=== PATIENT | male | born 1985 | race Caucasian/White ===

== ENCOUNTER 2019-11-15 21:36 | Emergency (ER) | payer MEDICAID, SELFPAY ==
[2019-11-15] VITALS (9 sets, daily range): BP systolic 117–167; BP diastolic 83–114; PULSE 84–92; RESP 16–18; TEMP 36.7; O2SAT 94–98; BMI 23.0
--- NOTE | 2019-11-15 21:40 | PC.NURSE ---
at the bedside
--- NOTE | 2019-11-15 21:47 | XR_ITS ---
PROCEDURE: XR HAND LT MIN 3V CLINICAL INDICATION: twisted hand grabbing for a tree The posttraumatic pain COMPARISON: No exams were available for comparison FINDINGS: There is lateral dislocation of the proximal phalanx at the 1st metacarpophalangeal joint. No obvious fracture. The joint spaces are well-preserved. No significant degenerative/arthritic changes. No erosive changes evident. Other findings:None. IMPRESSION: Dislocation of the 1st metacarpophalangeal joint Dictated by: Sammy Neville MD 11/16/2019 05:23 Electronically signed by Sammy Neville MD in [place] 11/16/2019 05:23
--- NOTE | 2019-11-15 21:57 | HMH.EDUPEXT ---
ED Disposition Clinical Impression: Thumb dislocation Qualifiers: Encounter type: initial encounter Laterality: left Qualified Code(s): S63.105A - Unspecified dislocation of left thumb, initial encounter Disposition: Home, Self-Care Condition on Discharge: Good Instructions: Finger Dislocation Additional Instructions: ice and wear splint and call ortho in am Prescriptions: Ketorolac Tromethamine [Toradol 10mg tablet] 10 mg PO Q6H 3 Days #12 tab Transmission Status: [id number] Referrals: Ady Borjas MD [Emergency Provider] - Praveen Ram MD [Staff Physician] - - Critical Care Critical Care Time: No Attestation: On , the high probability of a clinically significant, sudden or life threatening deterioration of the following system(s) required my full and direct attention, intervention and personal management. The time I documented below is in addition to time spent performing reported procedures but includes the following listed in this critical care notation. Medical Decision Making - Medical Records Medical records reviewed: Yes: I reviewed the patient's medical records. - [place] Inquiry Pt receiving controlled substance: No Vital Signs: 11/15/19 21:43 11/15/19 22:05 11/15/19 22:07 Temperature 98.1 F Temperature Source Oral Pulse Rate [Right Brachial] 85 92 H 89 Respiratory Rate 18 18 Blood Pressure [Right Arm] 140/114 H 143/90 H 143/90 H Blood Pressure Mean [Right Arm] 122 107 107 Blood Pressure Source [Right Arm] Automatic Cuff Automatic Cuff Blood Pressure Position [Right Arm] Sitting Sitting 02 Sat by Pulse Oximetry 96 95 98 Oxygen Delivery Method Room Air Room Air Room Air 11/15/19 22:10 11/15/19 22:15 11/15/19 22:20 Temperature Temperature Source Pulse Rate [Right Brachial] 89 88 90 Respiratory Rate 17 16 16 Blood Pressure [Right Arm] 167/110 H 149/107 H 157/96 H Blood Pressure Mean [Right Arm] 129 121 116 Blood Pressure Source [Right Arm] Automatic Cuff Automatic Cuff Automatic Cuff Blood Pressure Position [Right Arm] Sitting Sitting Sitting 02 Sat by Pulse Oximetry 95 94 L 94 L Oxygen Delivery Method Room Air Room Air Room Air 11/15/19 22:25 Temperature Temperature Source Pulse Rate [Right Brachial] 92 H Respiratory Rate 16 Blood Pressure [Right Arm] 117/97 H Blood Pressure Mean [Right Arm] 103 Blood Pressure Source [Right Arm] Automatic Cuff Blood Pressure Position [Right Arm] Sitting 02 Sat by Pulse Oximetry 95 Oxygen Delivery Method Room Air - Lab Data Lab results reviewed: Yes: I reviewed the patient's lab results. Orders (Tests/Meds): ED MEDICATIONS Generic Name Dose Route Start Last Admin Trade Name Freq PRN Reason Stop Dose Admin Sodium Chloride 1,000 mls @ 999 mls/hr 11/15/19 22:15 11/15/19 22:04 Sod Chlor 0.9% 1000ml Bag IV 11/15/19 23:15 999 mls/hr .Q1H1M JARRED Administration Discontinued Medications Generic Name Dose Route Start Last Admin Trade Name Freq PRN Reason Stop Dose Admin Fentanyl Citrate 100 mcg 11/15/19 22:02 Fentanyl 100mcg/2ml Vial IV 11/15/19 22:03 ONCE ONE Fentanyl Citrate 250 mcg 11/15/19 22:02 Fentanyl 250mcg/5ml Vial IV 11/15/19 22:03 ONCE ONE Ketorolac Tromethamine 30 mg 11/15/19 23:00 11/15/19 23:12 Toradol 30mg/Ml Vial IV 11/15/19 23:01 30 mg ONCE ONE Administration Midazolam HCl 2 mg 11/15/19 22:02 11/15/19 22:43 Midazolam 2mg/2ml Vial IV 11/15/19 22:03 2 mg ONCE ONE Administration Midazolam HCl 2 mg 11/15/19 22:02 11/15/19 22:14 Midazolam 2mg/2ml Vial IV 11/15/19 22:03 2 mg ONCE ONE Administration ORDERS Category Date Time Status Hand XR left 2 views [XR hand LT 2V] Stat Exams 11/15/19 22:19 Taken Hand XR left minimum 3 views [XR hand LT min 3V] Stat Exams 11/15/19 21:47 Taken - Radiology Data #1 Image(s): Hand Image Reviewed: Yes I reviewed the patient's radiology image Prelimina
--- NOTE | 2019-11-15 22:10 | PC.NURSE ---
MD and RN at the bedside to initiate conscious sedation. Pt signed permit for reduction of the left thumb.
--- NOTE | 2019-11-15 22:19 | XR_ITS ---
PROCEDURE: XR HAND LT 2V CLINICAL INDICATION: injury Postreduction COMPARISON: XR HAND LT MIN 3V from 11/15/2019 FINDINGS: There has been interval reduction of the dislocation at the 1st metacarpophalangeal joint without obvious fracture. The joint spaces are well-preserved. No significant degenerative/arthritic changes. No erosive changes evident. Other findings:None. IMPRESSION: Reduced dislocation of the 1st metacarpal phalangeal joint Dictated by: Sammy Neville MD 11/16/2019 05:21 Electronically signed by Sammy Neville MD in [place] 11/16/2019 05:21
--- NOTE | 2019-11-15 22:43 | PC.NURSE ---
Rad at the bedside for post-reduction images
--- NOTE | 2019-11-15 22:43 | PC.NURSE ---
Conscious sedation protocol in place at this time.
== END 2019-11-15 23:31 | disposition home or self-care (01) ==
PROVIDERS: Emergency Provider Emergency Medicine
DX: S63.105A Unspecified dislocation of left thumb, initial encounter (principal); X50.1XXA Overexertion from prolonged static or awkward postures, initial encounter; Y92.89 Other specified places as the place of occurrence of the external cause; Z88.0 Allergy status to penicillin
CPT/HCPCS: 29125; 26700; 73120; 73130; 96365; 96375; 99285

== ENCOUNTER 2022-02-08 00:57 | Emergency (ER) | payer MEDICAID, SELFPAY ==
[2022-02-08 01:07] VITALS: BP 128/73; PULSE 96; RESP 16; TEMP 36.6; O2SAT 98; BMI 27.6
--- NOTE | 2022-02-08 01:35 | HMH.EDEXTP ---
Discharge Plan Disposition Patient Disposition: Home, Self-Care Condition: Good Chief Complaint: Extremity Injury, Upper Prescriptions Prescriptions: No Action ibuprofen 800 mg Tablet 800 mg PO Q8H lamotrigine 25 mg Tablet 75 mg PO DAILY Activity Restrictions/Add. Instructions Additional Instructions/Restrictions: Continue taking ibuprofen and Tylenol for your symptoms. If your condition worsens or other concerns arise, please return to the emergency department. Instructions Patient Instructions: DI for Musculoskeletal Pain Discharge ED Provider: Shara Shane Extremity Problem HPI General Chief complaint: Extremity Injury, Upper Stated complaint: Right arm pain Time Seen by Provider: 02/08/22 01:36 Mode of Arrival: Ambulatory Source of Information: Patient Limitations: No Limitations Description of Symptoms (Recalled from ER Triage Doc. by RN): Pt c/o right arm pain since yesterday. Denies injury. States he woke up with the pain. Says the pain is worse in his palm with tingling in his fingers and the pain radiates up to his elbow. History of Present Illness HPI Narrative: Patient is a 36-year-old male presenting with a chief complaint of severe right hand pain and swelling. Patient states he woke up Wednesday morning like this. Pain is worst in the palm and radiates up towards the elbow. Denies trauma or injury. No fever, shortness of breath, chest pain, abdominal pain but patient does state that he has vomited. Admits to IV drug use in the past. Complaint: extremity pain Onset (ago): day(s) Consistency: constant Location: right and upper extremity Quality: burning Radiation: distal Relieving factors: nothing Exacerbating factors: nothing Related Data Home Medications Medication Instructions Recorded Confirmed ibuprofen 800 mg tablet 800 mg PO Q8H back pain 02/08/22 02/08/22 lamotrigine 25 mg tablet 75 mg PO DAILY back pain 02/08/22 02/08/22 Allergies Allergy/AdvReac Type Severity Reaction Status Date / Time amoxicillin AdvReac Verified 11/15/19 21:48 Penicillins AdvReac Verified 11/15/19 21:48 PFSH PFSH Social History Smoking Status: Current every day smoker alcohol intake: never current occupational status: unemployed Travel in the last 8 weeks: None ROS Obtained: Yes Systems reviewed as appropriate & no additional complaints except as documented Constitutional Constitutional: Denies body ache, Denies chills and Denies fever(s) Eyes Eyes: Denies change in vision and Denies eye pain Cardiovascular Cardiovascular: Denies chest pain at rest, Denies chest pain with activity, Denies dyspnea on exertion and Denies leg edema Respiratory Respiratory: Denies shortness of breath, Denies cough, Denies dyspnea on exertion and Denies hemoptysis Gastrointestinal Gastrointestingal: Reports nausea and vomiting; Denies abdominal pain or diarrhea Musculoskeletal Musculoskeletal: Reports other (Severe right hand pain, swelling of right hand) Integumentary/Breasts Skin/Breast: Denies new lesions and Denies rash Neurologic Neurologic: Denies confusion, Denies focal weakness and Reports paresthesias (Tingling/burning in the right hand) Physical Exam General General appearance: alert and in no apparent distress Head Head exam: atraumatic, normocephalic and normal inspection Eye Eye exam: Present normal appearance; Absent conjunctival redness or conjunctival injection ENT ENT exam: Present normal exam, normal oropharynx, mucous membranes moist and normal external ear exam Neck Neck exam: Present normal inspection, full ROM and trachea midline Chest Chest inspection: Present normal inspection and symmetric chest wall rise Respiratory Respiratory exam: Present normal lung sounds bilaterally; Absent respiratory distress, wheezes or stridor Cardiovascular Cardiovascular exam: Present regular rate, normal rhythm and normal heart s
--- NOTE | 2022-02-08 01:42 | XR_ITS ---
PROCEDURE INFORMATION: Exam: XR Right Hand Exam date and time: 02/08/2022 1:43 AM Age: 36 years old Clinical indication: Pain; Hand; Right; Additional info: Pain, no known injury, TECHNIQUE: Imaging protocol: Radiologic exam of the Right hand. Views: 1 or 2 views. COMPARISON: No relevant prior studies available. FINDINGS: Bones/joints: Normal. Soft tissues: Normal. IMPRESSION: No acute findings.
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
[2022-02-08 02:32] LABS: Basophils # 0.2 K/mm3 (0-0.2); Basophils % 1.6 % (0.1-2.0); Eosinophils # 0.4 K/mm3 (0.0-0.4); Eosinophils % 3.7 % (0.1-12.0); Hematocrit 46.2 % (42.0-52.0); Hemoglobin 15.6 g/dL (14.1-18.0); Lymphocytes # 3.5 K/mm3 (0.7-4.5); Lymphocytes % 32.1 % (10-50); Mean Corpuscular HGB Conc 33.6 g/dL (31.8-35.4); Mean Corpuscular Hemoglobin 28.7 pg (27.0-31.2); Mean Corpuscular Volume 85.2 fl (80-94); Mean Platelet Volume 8.8 fl (7.4-10.4); Monocytes # 0.9 K/mm3 (0.1-1.0); Monocytes % 8.1 % (1.7-9.3); Neutrophils # 5.9 K/mm3 (1.8-7.8); Neutrophils % 54.6 % (37.0-80.0); Platelet Count 250 K/mm3 (142-424); Red Blood Count 5.43 M/mm3 (4.60-6.20); Red Cell Distribution Width 13.1 % (11.5-17.5); White Blood Count 10.8 K/mm3 (4.8-10.8)
[2022-02-08 02:35] LABS: Alanine Aminotransferase 50 U/L (12-78); Albumin Level 3.9 g/dl (3.5-5.0); Albumin/Globulin Ratio 1.3 (1.1-1.8); Alkaline Phosphatase 108 U/L (38-126); Aspartate Amino Transferase 70 U/L (17-59); Bilirubin,Total 0.9 mg/dl (0.2-1.3); Blood Urea Nitrogen 15 mg/dl (9-20); Calcium 8.5 mg/dl (8.4-10.2); Carbon Dioxide 27 mmol/L (22.0-30.0); Creatine Kinase 798 U/L (55-170); Creatinine Clearance Estimated 162 mL/min (50-200); Estimated Glomerular Filt Rate 109 ml/min (>60); GFR (African American) 132 ML/MIN (>60); Globulin 2.9 g/dL (1.3-3.2); Glucose 127 mg/dl (74-100); Potassium 3.8 mmoL/L (3.5-5.1); Sodium 138 mmol/L (136-145); Total Protein,Serum 6.8 g/dl (6.3-8.2)
[2022-02-08 02:37] LABS: Barbiturates Screen,Urine Negative ng/ml (<200); Benzodiazepines Screen,Urine Negative ng/ml (<200)
[2022-02-08 02:38] LABS: Ethyl Alcohol < 10 mg/dl (0-10)
[2022-02-08 02:38] LABS: Cannabinoid Screen,Urine Positive ng/ml (<50)
[2022-02-08 02:38] LABS: Lactic Acid 1.1 mmol/L (0.7-2.1)
[2022-02-08 02:39] LABS: Cocaine Screen,Urine Negative ng/ml (<300); Methadone Screen,Urine Negative ng/ml (<300)
[2022-02-08 02:40] LABS: Anion Gap 12.8 mEq/L (5-15); C-Reactive Protein 20.9 mg/L (0-4); Chloride 102 mmol/L (98-107)
[2022-02-08 02:40] LABS: Phencyclidine Screen,Urine Negative ng/ml (<25)
[2022-02-08 02:41] LABS: Opiate Screen,Urine Negative ng/ml (<300)
[2022-02-08 02:56] LABS: Amphetamine/Metha Screen,Urine Positive ng/ml (<1000)
[2022-02-08 03:03] LABS: Erythrocyte Sedimentation Rate 8 mm/hr (0-15)
--- NOTE | 2022-02-08 03:32 | CT_ITS ---
PROCEDURE INFORMATION: Exam: CTA Right Upper Extremity With Contrast Exam date and time: 02/08/2022 4:40 AM Age: 35 years old Clinical indication: Pain; Lower or forearm and upper arm; Right; Additional info: Severe right hand pain swelling in RT arm. TECHNIQUE: Imaging protocol: Computed tomographic angiography of the Right upper extremity with contrast, including non-contrast images if performed. 3D rendering (Not supervised by radiologist): MIP and/or 3D reconstructed images were created by the technologist. Radiation optimization: All CT scans at this facility use at least one of these dose optimization techniques: automated exposure control; mA and/or kV adjustment per patient size (includes targeted exams where dose is matched to clinical indication); or iterative reconstruction. Contrast material: ISOVUE 370; Contrast volume: 100 ml; Contrast route: INTRAVENOUS (IV); COMPARISON: CR Hand R 02/08/2022 1:43 AM FINDINGS: Right subclavian artery: No acute findings. No occlusion or significant stenosis. Axillary artery: No acute findings. No occlusion or significant stenosis. Brachial artery: No acute findings. No occlusion or significant stenosis. Radial artery: No acute findings. No occlusion or significant stenosis. Ulnar artery: No acute findings. No occlusion or significant stenosis. Soft tissues: Mild subcutaneous edema in the hand. No fluid collections. IMPRESSION: Unremarkable CTA.
[2022-02-08 06:09] VITALS: BP 120/78; PULSE 79; RESP 17; TEMP 36.8; O2SAT 98
== END 2022-02-08 06:16 | disposition home or self-care (01) ==
PROVIDERS: Emergency Provider Emergency Medicine
DX: M79.601 Pain in right arm (principal)
CPT/HCPCS: 73120; 73206; 80053; 80305; 82550; 83605; 85025; 85651; 86140; 96374; 96375; 99284; Q9967

== ENCOUNTER 2022-11-07 20:14 | Emergency (ER) | payer MEDICAID, SELFPAY ==
[2022-11-07 20:16] VITALS: BP 156/94; PULSE 89; RESP 19; TEMP 36.5; O2SAT 98; BMI 27.6
[2022-11-07 20:23] VITALS: BP 156/94; PULSE 82; O2SAT 100
[2022-11-07 20:27] VITALS: BMI 27.6
--- NOTE | 2022-11-07 20:29 | XR_ITS ---
PROCEDURE INFORMATION: Exam: XR Left Foot Exam date and time: 11/07/2022 8:32 PM Age: 36 years old Clinical indication: Injury or trauma; Fall; Additional info: Fall, pain TECHNIQUE: Imaging protocol: Radiologic exam of the left foot. Views: 3 or more views. COMPARISON: CR Ankle L 11/07/2022 8:30 PM FINDINGS: Bones/joints: No acute fracture or malalignment. Soft tissues: Mild lateral ankle soft tissue swelling. IMPRESSION: Mild lateral ankle soft tissue swelling. No acute osseous findings.
--- NOTE | 2022-11-07 20:29 | XR_ITS ---
PROCEDURE INFORMATION: Exam: XR Left Ankle Exam date and time: 11/07/2022 8:30 PM Age: 36 years old Clinical indication: Injury or trauma; Fall; Additional info: Fall, pain TECHNIQUE: Imaging protocol: Radiologic exam of the left ankle. Views: 3 or more views. COMPARISON: No relevant prior studies available. FINDINGS: Bones/joints: No acute fracture or malalignment. Soft tissues: Mild lateral ankle soft tissue swelling. IMPRESSION: Mild lateral ankle soft tissue swelling. No acute osseous findings.
--- NOTE | 2022-11-07 20:29 | XR_ITS ---
PROCEDURE INFORMATION: Exam: XR Right Hand Exam date and time: 11/07/2022 8:39 PM Age: 36 years old Clinical indication: Injury or trauma; Fall; Additional info: Fall, pain TECHNIQUE: Imaging protocol: Radiologic exam of the right hand. Views: 3 or more views. COMPARISON: CR XR HAND RT 2V 02/08/2022 1:43 AM FINDINGS: Bones/joints: No acute fracture or malalignment. Mild ring finger DIP joint osteoarthritis. Soft tissues: Normal. IMPRESSION: No acute osseous findings.
--- NOTE | 2022-11-07 20:29 | XR_ITS ---
PROCEDURE INFORMATION: Exam: XR Right Wrist Exam date and time: 11/07/2022 8:38 PM Age: 36 years old Clinical indication: Injury or trauma; Fall; Additional info: Fall, pain TECHNIQUE: Imaging protocol: Radiologic exam of the right wrist. Views: 3 or more views. COMPARISON: CR XR HAND RT 2V 02/08/2022 1:43 AM FINDINGS: Bones/joints: No acute fracture or malalignment. Soft tissues: Normal. IMPRESSION: No acute osseous findings.
--- NOTE | 2022-11-07 20:29 | XR_ITS ---
PROCEDURE INFORMATION: Exam: XR Left Tibia and Fibula Exam date and time: 11/07/2022 8:33 PM Age: 36 years old Clinical indication: Injury or trauma; Fall; Additional info: Fall, pain TECHNIQUE: Imaging protocol: Radiologic exam of the left tibia and fibula. Views: 2 views. COMPARISON: CR Foot L 11/07/2022 8:32 PM FINDINGS: Bones/joints: No acute fracture or malalignment. Soft tissues: Mild lateral ankle soft tissue swelling. IMPRESSION: Mild lateral ankle soft tissue swelling. No acute osseous findings.
[2022-11-07 20:30] VITALS: BP 145/98; PULSE 89; O2SAT 98
[2022-11-07 21:00] VITALS: BP 143/87; PULSE 86; O2SAT 96
--- NOTE | 2022-11-07 21:13 | HMH.EDLOEX ---
Discharge Plan Disposition Patient Disposition: Home, Self-Care Prescriptions Prescriptions: No Action ibuprofen 800 mg Tablet 800 mg PO Q8H lamotrigine 25 mg Tablet 75 mg PO DAILY Referrals Follow up/Referrals: Provider,Referral, [Primary Care Provider] - See instructions Clinical Impressions Clinical Impression: Ankle sprain, Wrist sprain Instructions Patient Instructions: DI for Wrist Sprain, DI for Ankle Sprain Discharge ED Provider: [place] (ED)Ady Lower Extremity Injury HPI General Chief Complaint: Extremity Injury, Lower Stated Complaint: [id number] right hand left ankle, fall at home Time Seen by Provider: 11/07/22 21:14 Mode of Arrival: Family Vehicle Source of Information: Patient and Medical Record Limitations: No Limitations Description of Symptoms (Recalled from ER Triage Doc. by RN): Pt c/o left foot and ankle pain after getting his foot stuck into a hole and falling down. He also has pain to his right wrist by trying to catch his fall. He denies hitting his head, denies neck pain. He has not taken any medication [employer]. No significant PMH. History of Present Illness HPI Narrative: stepped in hole with lt ankle/lower ext injury/and rt wrist injury - MD complaint: ankle injury and foot injury Onset (ago): hour(s) Injury: Left: ankle and foot Type of Injury: hyperextension Place: home Severity: moderate Exacerbating factors: weight bearing, movement and palpation Context: walking Associated symptoms: snap/pop sensation and able to partially bear weight Other symptoms: none Related Data Home Medications Medication Instructions Recorded Confirmed ibuprofen 800 mg tablet 800 mg PO Q8H back pain 02/08/22 02/08/22 lamotrigine 25 mg tablet 75 mg PO DAILY back pain 02/08/22 02/08/22 Allergies Allergy/AdvReac Type Severity Reaction Status Date / Time amoxicillin AdvReac Verified 11/15/19 21:48 Penicillins AdvReac Verified 11/15/19 21:48 PFSH PFS Disclaimer: The information contained in this section may have been updated after the patient was seen, as this information can be updated by other users. Social History Smoking Status: Current every day smoker alcohol intake: never current occupational status: unemployed Travel in the last 8 weeks: None ROS Obtained: Yes All systems reviewed & no additional complaints except as documented Constitutional Constitutional: Reports system reviewed and no additional complaints, except as documented Physical Exam General General appearance: alert Head Head exam: normocephalic Eye Eye exam: Present PERRL and EOMI ENT ENT exam: Present mucous membranes moist Neck Neck exam: Present trachea midline Respiratory Respiratory exam: Absent respiratory distress Cardiovascular Cardiovascular exam: Present regular rate Expanded Upper Extremity Exam Right: Forearm/Wrist exam: Present tenderness and swelling; Absent full ROM or erythema Neuromotor exam: Normal wrist extension Vascular exam: Normal radial pulse Expanded Lower Extremity Exam Left: Lower leg exam: Present normal inspection and Achilles tendon intact Ankle exam: Present tenderness and swelling; Absent full ROM Foot/toe exam: Present normal inspection Neurovascular/Tendon exam: Absent pulse deficit or motor deficit Neurological Exam Neurological exam: Present alert, oriented X3 and CN II-XII intact; Absent motor sensory deficit Psychiatric Psychiatric exam: Present normal affect Skin Skin exam: Absent rash Medical Decision Making Medical Records Medical records reviewed: Yes I reviewed the patient's medical records. [place] Inquiry Pt receiving controlled substance: No Vital Signs: 11/07/22 20:23 11/07/22 20:16 11/07/22 20:30 Temperature 97.7 F Temperature Source Oral Pulse Rate 82 89 Pulse Rate [Right] 89 Respiratory Rate 19 Blood
[2022-11-07 21:44] VITALS: BP 144/87; PULSE 80; RESP 16; TEMP 36.7; O2SAT 99
== END 2022-11-07 21:45 | disposition home or self-care (01) ==
PROVIDERS: Emergency Provider Emergency Medicine
DX: S93.402A Sprain of unspecified ligament of left ankle, initial encounter (principal); S63.501A Unspecified sprain of right wrist, initial encounter; W18.30XA Fall on same level, unspecified, initial encounter; F17.200 Nicotine dependence, unspecified, uncomplicated
CPT/HCPCS: 73110; 73130; 73590; 73610; 73630; 99283; 99284

== ENCOUNTER 2023-10-30 18:10 | Emergency (ER) | payer OTHER, SELFPAY ==
[2023-10-30 18:11] VITALS: BP 131/94; PULSE 82; RESP 20; TEMP 36.5; O2SAT 97; BMI 29.2
[2023-10-30 18:19] VITALS: BMI 29.2
[2023-10-30] MEDS: CLINDAMYCIN 150MG CAPSULE 450 MG PO (18:34)
[2023-10-30] MEDS: LIDOCAINE 2% VISCOUS SOL 15ML UDC 15 ML PO (18:34)
[2023-10-30] MEDS: LIDOCAINE 1% 10ML MDV 10 ML SQ (18:35)
--- NOTE | 2023-10-30 18:41 | HMH.EDGENADL ---
Discharge Plan Disposition Patient Disposition: Home, Self-Care Prescriptions Prescriptions: New clindamycin HCl 150 mg capsule 450 mg PO Q8H 7 Days Qty: 63 0RF No Action ibuprofen 800 mg Tablet 800 mg PO Q8H lamotrigine 25 mg Tablet 75 mg PO DAILY Referrals Follow up/Referrals: Provider,Referral, MD [Primary Care Provider] - See instructions Activity Restrictions/Add. Instructions Additional Instructions/Restrictions: Call your family doctor to establish care for this visit to the emergency department and schedule follow-up within 48 hours to ensure improvement. If you have any worsening of your condition or any other concerning signs or symptoms, return to the emergency department or your primary care doctor for further evaluation. Clindamycin 450 mg 3 times daily for 7 days Clinical Impressions Clinical Impression: Dental caries Discharge ED Provider: Umer Childers General Adult HPI General Chief complaint: Dental/Oral Stated complaint: tooth ache Time Seen by Provider: 10/30/23 18:21 Mode of Arrival: Family Vehicle Source of Information: Patient Limitations: No Limitations Description of Symptoms (Recalled from ER Triage Doc. by RN): Pt c/o severe toothache to R side. He does have a Denisit in [place] but was not able to see them recently. History of Present Illness HPI narrative: Please note that above description of symptoms, in this electronic medical record under categorization of recalled from ER triage doctor by RN are reflective of an initial nursing assessment, however, is not reflective of my full history and physical exam that was personally taken and clarified. Consequentially, this preceding description of symptoms, which may include the patient's categorized chief complaint in the EMR, do not reflect my personal clinical impression, and the ultimate description of history of present illness and patient stated complaints should be deferred to this section of the note. Unless stated otherwise or congruent with this section of the note, additional signs, symptoms, or incongruence should be interpreted as inaccurate with my clinical impression. Related Data Home Medications Medication Instructions Recorded Confirmed ibuprofen 800 mg tablet 800 mg PO Q8H back pain 02/08/22 02/08/22 lamotrigine 25 mg tablet 75 mg PO DAILY back pain 02/08/22 02/08/22 Previous Rx's Medication Instructions Recorded clindamycin HCl 150 mg capsule 450 mg (3 x 150 mg) PO Q8H 7 days 10/30/23 #63 caps Allergies Allergy/AdvReac Type Severity Reaction Status Date / Time amoxicillin AdvReac Verified 11/15/19 21:48 Penicillins AdvReac Verified 11/15/19 21:48 [facility] Disclaimer: The information contained in this section may have been updated after the patient was seen, as this information can be updated by other users. Social History Smoking Status: Current every day smoker alcohol intake: never current occupational status: unemployed Travel in the last 8 weeks: None ROS Obtained: Yes All systems reviewed & no additional complaints except as documented Physical Exam General General appearance: alert and in no apparent distress Head Head exam: atraumatic and normocephalic Eye Eye exam: Present normal appearance, PERRL and EOMI ENT ENT exam: Present mucous membranes moist Neck Neck exam: Present normal inspection, full ROM and trachea midline Respiratory Respiratory exam: Absent respiratory distress, wheezes, stridor, accessory muscle use or prolonged expiratory phase Cardiovascular Cardiovascular exam: Present normal rhythm Abdominal Exam Abdominal exam: Present soft; Absent distention, tenderness, guarding, rebound or rigidity Extremities Exam Extremities exam: Absent edema Neurological Exam Neurological exam: Present alert, oriented X3, CN II-XII intact and normal gait; Absent motor sensory deficit Skin Skin exam: Present warm and dry; Absent diaphoresis or erythema Medical Decision Making Medical Records Medical records reviewed: Yes I reviewed the patient's medical records. Duane Inquiry Pt receiving controlled substance: No Duane was queried for this patient: No Vital Signs: 10/30/23 18:11 10/30/23 19:00 Temperature 97.7 F Temperature Source Oral Pulse Rate 64 Pulse Rate [Right] 82 Respiratory Rate 20 Blood Pressure 125/89 Blood Pressure [Right Arm] 131/94 H Blood Pressure Mean 97 Blood Pressure Mean [Right Arm] 106 Blood Pressure Source [Right Arm] Automatic Cuff 02 Sat by Pulse Oximetry 97 94 L Oxygen Delivery Method Room Air Orders (Tests/Meds): ED MEDICATIONS Discontinued Medications Generic Name Dose Route Start Last Admin Trade Name Freq PRN Reason Stop Dose Admin Clindamycin HCl 450 mg 10/30/23 18:30 10/30/23 18:34 Clindamycin 150mg Capsule PO 10/30/23 18:31 450 mg ONCE ONE Administration Dexamethasone 10 mg 10/30/23 19:16 10/30/23 19:26 Dexamethasone 4mg Tablet PO 10/30/23 19:17 10 mg ONCE ONE Administration Lidocaine HCl 15 ml 10/30/23 18:30 10/30/23 18:34 Lidocaine 2% Viscous Keyla 15ml Udc PO 10/30/23 18:31 15 ml ONCE ONE Administration Lidocaine HCl 10 ml 10/30/23 18:30 10/30/23 18:35 Lidocaine 1% 10ml Mdv SQ 10/30/23 18:31 10 ml ONCE ONE Administration Medical Decision Narrative: 37-year-old male history of poor dentition necessitating numerous dental extractions presenting with right-sided dental pain. Patient states that this started about 3 hours prior while he was mowing the grass. He had mild no work. Right-sided maxillary pain. Throbbing, stabbing, radiating into his tooth. Associated with a broken tooth that he has dentistry follow-up with. No fevers or chills, facial swelling, or any other concerns. History obtained with patient. On arrival, patient appears to be in mild-moderate distress secondary to pain, holding his face. Broken tooth, no evidence of periapical abscess or drainable fluid collection. No evidence of tonsillitis, exudate, pharyngeal erythema, uvular deviation, palatal swelling, trismus, dental abscess, angioedema, or other abnormal damon pharyngeal findings. Patient given dental balls, alveolar nerve block was performed with 1% lidocaine. Infraorbital nerve block also performed. Patient given clindamycin. Patient also given Decadron for inflammatory pain. On reevaluation, patient states that pain is significantly better, but still present. Given patient presentation, workup, history, this most likely represents dental caries and periapical infection. Because patient at baseline without signs or symptoms of clinical decompensation, deemed appropriate for discharge. Results were relayed to patient who voiced understanding and were agreeable to outpatient management and follow up. I discussed my clinical impression with patient and answered all questions. At this time, the evidence for any other entities in the differential is insufficient to warrant any further testing or ED observation. This was explained as well. Advisory was given that persistent or worsening symptoms require further evaluation. I confirmed the understanding of this discussion. Cash Teller disclaimer Much of this encounter note is an electronic establishment guide spoken language to printed text. Electronic establishment guide of the spoken language may permit errors. Although I have reviewed the note, some errors may still exist. Critical Care Critical Care Time Critical Care Time: No
[2023-10-30 19:00] VITALS: BP 125/89; PULSE 64; O2SAT 94
--- NOTE | 2023-10-30 19:23 | PC.NURSE ---
rounded on patient no pertinent needs at this time, patient stated that he was still in severe pain at this time. I informed him I would notify the doctor
[2023-10-30] MEDS: DEXAMETHASONE 4MG TABLET 10 MG PO (19:26)
[2023-10-30 19:38] VITALS: BP 128/90; PULSE 64; RESP 17; TEMP 36.8; O2SAT 95
== END 2023-10-30 19:43 | disposition home or self-care (01) ==
PROVIDERS: Emergency Provider Emergency Medicine
DX: K02.9 Dental caries, unspecified (principal); F17.210 Nicotine dependence, cigarettes, uncomplicated
CPT/HCPCS: 99283

== ENCOUNTER 2024-11-19 19:47 | Emergency (ER) | payer OTHER, SELFPAY ==
[2024-11-19 19:59] VITALS: BP 133/82; PULSE 92; RESP 18; TEMP 36.8; O2SAT 100; BMI 29.2
--- OUTSIDE RECORDS SUMMARY | 2024-11-19 20:01 | XMS_ITS | Clinical Summary ---
Author Organization [facility] Address [facility] [facility] [address] [place] [address] Phone Care Team Providers Care Asset Protection Detective Name Role Phone Alicja PALACIO, Samuel Unavailable [phone] Conditions or Problems No information available. Medications No information available. Medications Administered No information available. Allergies, Adverse Reactions, Alerts No information available. Results No information available. Plan of Care No information available. Procedures No information available. Vital Signs No information available. Immunizations No information available. Advance Directives No information available.
--- OUTSIDE RECORDS SUMMARY | 2024-11-19 20:01 | XMS_ITS | Clinical Summary ---
Author Organization Healthcare Address [address] [place] [address] Care Team Providers Care Animal Shelter Worker Name Role Phone Pcp, No Primary Care Provider Unavailabl e Allergies Active Allergy Reactions Criticality Noted Date Comments Penicillins Hives Medium 05/02/2024 Medications acetaminophen (Tylenol Extra Strength) 500 MG tablet Take 2 tablets (1,000 mg) by mouth every 8 (eight) hours. 100 tablet 05/03/2024 Active methocarbamol (Robaxin) 750 MG tabletIndicatio ns:Cervical strain, acute, initial encounter Take 1 tablet (750 mg) by mouth 3 (three) times a day if needed for muscle spasms. 90 tablet 05/25/2024 Active Encounters Date Type Department Care Team Description 08/28/2024 Telephone [facility] access hospital [address], [address] [place] [address] Deepa Noyola 08/23/2024 Telephone Critical access hospital [address], [address] [place] [address] Irish Galvan APRN 08/22/2024 Telephone Critical access hospital [address] [place] [address] Irish Galvan, AMY from Last 3 Months Social History Tobacco Use Types Packs/Day Years Used Date Smoking Tobacco: Every Day Cigarettes Smokeless Tobacco: Never Tobacco Cessation:Ready to Q uit: Not Asked; Counseling Given: Not Answered Alcohol Use Standard Drinks/Week Comments Never 0 (1 standard drink = 0.6 oz pur e alcohol) PHQ-2 Answer Date Recorded Patient Health Questionnaire-2 Score 2 05/25/2024 PHQ-9 Answer Date Recorded Patient Health Questionnaire-9 Score 15 05/25/2024 Sex and Gender Information Value Date Recorded Sex Assigned at Not on file Legal Sex Male 8:11 PM EDT Gender Identity Not on file Sexual Orientation Not on file Last Filed Vital Signs Vital Sign Reading Time Taken Comments Blood Pressure 106/80 05/25/2024 11:37 AM EST Pulse 59 05/03/2024 3:53 AM EST Temperature 36.5 C (97.7 F) 05/03/2024 3:53 AM EST Respiratory Rate 15 05/03/2024 3:53 AM EST Oxygen Saturation 97% 05/03/2024 3:53 AM EST Inhaled Oxygen Concentration - - Weight 94 kg (207 lb 3.7 oz) 05/25/2024 11:37 AM EST Height 180.3 cm (5' 11 ) 05/25/2024 11:37 AM EST Body Mass Index 28.9 05/25/2024 11:37 AM EST Plan of Treatment Health Maintenance Due Date Last Done Comments [facility]-Infant/Child/Adol SDOH Screenings 04/26/1985 [facility]-Varicella Vaccines (1 of 2 - 13+ 2-dose series) 04/25/1998 HPV Vaccines (1 - Male 3-dos e series) 04/25/2000 [facility]- SDOH Screenings 04/25/2003 [facility]-Adult SDOH Screenings 04/25/2003 [facility]-Pneumococcal Vaccine: Pediatrics (0 to 5 Years) and At-Risk Patients (6 to 49 Years) (1 of 2 - PCV) 04/25/2004 [facility]-DTaP,Tdap,and Td Vaccine s (2 - Tdap) 08/13/2006 08/12/2006, 02/20/1998 [id number] Vaccine (2 - season) 2024 09/17/2020 [facility]-Influenza Vaccine (#1) 2025 [facility]-Depression Screening 05/25/2025 025, 05/25/2024 [facility]-Zoster Vaccines (1 of 2) 04/25/2035 [facility]-Hepatitis B Vaccines Completed 000, 12/24/1998, 11/22/1998 [facility]-Hepatitis A Vaccines Aged Out 01/06/2018 No longer eligible based on patient's age to complete this topic [facility]-Hepatitis C Screening Completed 01/24/2019 [facility]-HIV Screening Completed 05/02/2024 [facility]-Obesity Intervention Completed 05/25/2024 [facility]-HIB Vaccines Aged Out No longer e ligible based on patient's age to complete this topic [facility]-IPV Vaccines Aged Out No longer e ligible based on patient's age to complete this topic [facility]-Rotavirus Vaccines Aged Out No lo nger eligible based on patient's age to complete this topic Procedures Procedure Name Priority Date/Time Associated Diagnosis Comments ED HIV 1/2 ANTIBODY/ANTIGEN SCREEN WITH REFLEX TO HIV I/II DIFFERENTIATION STAT 05/02/2024 11:06 PM EST HEPATITIS C ANTIBODY - ED W/REFLEX TO HCV QUANT PCR Routine 01/24/2019 10:25 AM EDT from Last 3 Months or Most Recently Relevant to Health Maintenance Results * ED HIV 1/2 Antibody/Antigen Screen w/Reflex to HIV 1/2 Differentiation (05/02/2024 11:06 PM EST) HIV 1 & 2 Antibody/Antigen Screen Non Reactive Non Reactive 05/02/2024 11:58 PM EST [facility] Comment:Screening for HIV 1 & 2 antibodies, and P24 antigen is NONREACTIVE. No confirmatory testing is required. Blood Venous blood specimen / Unknown Venipuncture / Unknown 05/02/2024 11:06 PM EST 05/02/2024 11:17 PM EST us Fidel Song MD LAB BLOOD ORDERABLES Final Res ult [facility] [address] [place] [address] * [place] Hepatitis C Antibody (01/24/2019 10:25 AM EDT) Eb Hepatitis C Ab POSITIVE This specimen is being sent for confirmation by PCR. Reference Range: Negative [facility] 01/24/2019 10:2 5 AM EDT 01/24/2019 10:45 AM EDT us Historical Provider LAB BLOOD ORDERABLES Genesis [email or web address] Result [facility] from Last 3 Months or Most Recently Relevant to Health Maintenance Insurance [employer]ICAID [employer] [facility] Care Teams Animal Shelter Worker Relationship Specialty Start Date End Date Pcp, No [address] [place] [address] PCP - General Family Medicine 05/25/24
--- OUTSIDE RECORDS SUMMARY | 2024-11-19 20:01 | XMS_ITS ---
Author Organization Healthcare Address [address] [place] [address] Care Team Providers Care Buckle Stapler Name Role Phone Pcp, No Primary Care Provider Unavailabl e Hepatitis C Program Status:Paused (Paused) Start date:01/24/2019 Enrollment date:01/24/2019 Enrollment reason:HCV Continued Care and Services Coordination
--- NOTE | 2024-11-19 20:03 | ED_ITS ---
<Statement entered by Jhonatan Salomon MD - 11/19/24 23:31> I was consulted by the KATARZYNA, and we discussed the complexity of the problems being addressed. I approved the treatment and management plan for this patient's care in the emergency department, thus performing a substantive portion of the medical decision making. The dog that the patient bit is going to an animal fci and will likely be put down and therefore cannot be observed for rabies. Given this rabies postexposure prophylaxis although exceedingly low given the circumstances is still technically warranted. Patient signed out AGAINST MEDICAL ADVICE prior to receiving his rabies vaccines. Jhonatan Salomon MD Discharge Plan Disposition Patient Disposition: Left Against Medical Advice Prescriptions Prescriptions: New lidocaine [Lidoderm] 5 % adhesive patch,medicated 1 patch topical DAILY Qty: 15 0RF Rx Instructions: leave on most painful area for up to 12 hrs methocarbamol 500 mg tablet 500 mg PO TID Qty: 90 0RF No Action clindamycin HCl 150 mg capsule 450 mg PO Q8H 7 Days Qty: 63 0RF ibuprofen 800 mg Tablet 800 mg PO Q8H lamotrigine 25 mg Tablet 75 mg PO DAILY Referrals Follow up/Referrals: Provider,Referral, [Primary Care Provider, Medical] - See instructions Activity Restrictions/Add. Instructions Additional Instructions/Restrictions: Today you were evaluated in the emergency department. You signed out AGAINST MEDICAL ADVICE Clinical Impressions Clinical Impression: Right rib fracture, Fracture of lumbar spine, Left against medical advice Instructions Patient Instructions: DI for Low Back Pain Print Language Print Language: Vietnamese Discharge ED Provider: Jhonatan Salomon General Adult HPI General Chief complaint: Back Pain/Injury Stated complaint: AO 11/19/24 1800 dog fight injury back,L arm Time Seen by Provider: 11/19/24 19:57 History of Present Illness HPI narrative: Patient is a 38-year-old male no significant PMHx who presents to the ED for lower back pain that occurred after he broke up a dog fight. Patient states he did not get bit by any dog however rest of the dogs on the ground and the blood and then after he realized that his lower back was hurting. Related Data Home Medications ?Medication ?Instructions ?Recorded ?Confirmed ibuprofen 800 mg tablet 800 mg PO Q8H back pain 01/2202/08/22 lamotrigine 25 mg tablet 75 mg PO DAILY back pain 01/2202/08/22 Previous Rx's ?Medication ?Instructions ?Recorded clindamycin HCl 150 mg capsule 450 mg (3 x 150 mg) PO Q8H 7 days 10/30/23 #63 caps lidocaine 5 % topical patch 1 patch topical DAILY #15 ea 11/19/24 (Lidoderm) methocarbamol 500 mg tablet 500 mg PO TID #90 tabs Allergies Allergy/AdvReac Type Severity Reaction Status Date / Time amoxicillin AdvReac Verified 11/15/19 21:48 Penicillins AdvReac Verified 11/15/19 21:48 PFSH [facility] Disclaimer: The information contained in this section may have been updated after the patient was seen, as this information can be updated by other users. Social History Smoking Status: Never smoker alcohol intake: never current occupational status: unemployed Travel in the last 8 weeks?: None Have you lived/traveled outside US in past 30 days?: No Contact w/someone who lives/traveled outside US past 30 days?: No Exposure to someone with infectious disease in past 14 days?: No Do you have a fever (greater than 100.4 F or 38 C)?: No Have you tested positive for COVID-19?: No Exposed to someone with COVID-19 in past 14 days?: No Do you have a sore throat?: No Do you have a cough?: No Do you have any weakness?: No Do you have any diarrhea?: No Are you experiencing any unusual bleeding?: No Do you have any muscle aches/pain?: No Do you have any abdominal pain?: No Are you experiencing loss of taste or smell?: No Other Medical History Have you received the Flu Vaccine for this season: No Have you received the Pneumonia Vaccine: No ROS Obtained: Yes Systems reviewed as appropriate & no additional complaints except as documented Physical Exam General General appearance: alert and in no apparent distress Head Head exam: atraumatic and normocephalic Eye Eye exam: Present normal appearance and PERRL ENT ENT exam: Present normal exam Neck Neck exam: Present normal inspection Chest Chest inspection: Present normal inspection and symmetric chest wall rise; Absent tenderness Respiratory Respiratory exam: Present normal lung sounds bilaterally Cardiovascular Cardiovascular exam: Present regular rate Abdominal Exam Abdominal exam: Present soft and normal bowel sounds; Absent tenderness Extremities Exam Extremities exam: Present normal inspection and full ROM Back Exam Back exam: Present full ROM and tenderness (Bilateral lower back musculature tenderness, no spinal tenderness, no step-offs, no deformities) Neurological Exam Neurological exam: Present alert and oriented X3 Psychiatric Psychiatric exam: Present normal affect and normal mood Skin Skin exam: Present warm and dry Medical Decision Making Medical Records Screening: Per USPSTF and CDC recommendations, given the prevalence of disease in our region, it is our hospital?s policy to screen for HIV and viral Hepatitis for all patients aged 18 and over and those with ongoing risk factors. Duane Inquiry Pt receiving controlled substance: No Vital Signs: 11/19/24 19:59 Temperature 98.3 F Temperature Source Oral Pulse Rate [Right] 92 H Respiratory Rate 18 Blood Pressure [Right Arm] 133/82 Blood Pressure Mean [Right Arm] 99 Blood Pressure Source [Right Arm] Automatic Cuff Blood Pressure Position [Right Arm] Sitting 02 Sat by Pulse Oximetry 100 Orders (Tests/Meds): ED MEDICATIONS Generic Name Dose Route Start Last Admin Trade Name Freq PRN Reason Stop Dose Admin Methocarbamol 500 mg 11/19/24 21:00 11/19/24 20:54 Methocarbamol 500mg Tablet PO 12/19/24 20:59 500 mg BID JARRED Administration Discontinued Medications Generic Name Dose Route Start Last Admin Trade Name Freq PRN Reason Stop Dose Admin Acetaminophen 500 mg 11/19/24 20:02 11/19/24 20:54 Acetaminophen 500mg Tab PO 11/19/24 20:03 500 mg ONCE ONE Administration Ketorolac Tromethamine 15 mg 11/19/24 20:53 11/19/24 20:58 Ketorolac 30mg/Ml Vial IM 11/19/24 20:54 15 mg ONCE ONE Administration Lidocaine 1 each 11/19/24 20:02 11/19/24 20:54 Lidocaine 5% Transdermal Patch TD 11/19/24 20:03 1 each ONCE ONE Administration Rabies Immune Globulin 1,900 unit 11/19/24 21:06 Rabies Immune Globulin/Pf 300 Unit/Ml 5ml Vial IM 11/19/24 21:07 ONCE ONE Rabies Vaccine 2.5 unit 11/19/24 21:06 Rabies Vaccine (Pcec)/Pf 2.5 Unit Vial IM 11/19/24 21:07 .ONCE ONE Medical Decision Narrative: In summary, patient is a 38-year-old male no significant PMHx who presents to the ED for lower back pain that occurred after he broke up a dog fight. He states that during the dog fight, he bit the dog multiple times and had the dog's blood in his mouth, he subsequently washed his mouth out with hydrogen peroxide. Denies any dental injury. Patient states he did not get bit by any dog however he wrestled the dogs on the ground and then after he realized that his lower back was hurting. He denies hitting his head, denies loss of consciousness, denies any additional injuries. Upon initial evaluation patient is alert, crying, physical exam remarkable for bilateral lower back musculature tenderness, no spinal tenderness. Discussed with patient we will proceed with multimodal pain management. Will symptomatically manage with Lidoderm patch, Robaxin, Tylenol and Toradol injection. Patient is requesting home narcotics for his chronic back pain, staff and I explained that we are unable to write narcotics for chronic pain. Patient became upset and argued with multiple staff members. Attending went in the room to evaluate patient, they discussed rabies vaccination that patient is requesting. After the rabies vaccination immun basilbumich was ordered, patient stated that he was going to leave AGAINST MEDICAL ADVICE to obtain narcotic pain medication elsewhere. Upon leaving AMA, he was alert and oriented and ambulatory from the ED without difficulty. Critical Care Critical Care Time Critical Care Time: No
[2024-11-19] MEDS: METHOCARBAMOL 500MG TABLET 500 MG PO (20:54)
[2024-11-19] MEDS: ACETAMINOPHEN 500MG TAB 500 MG PO (20:54)
[2024-11-19] MEDS: LIDOCAINE 5% TRANSDERMAL PATCH 1 EACH TD (20:54)
[2024-11-19] MEDS: KETOROLAC 30MG/ML VIAL 15 MG IM (20:58)
--- NOTE | 2024-11-19 21:03 | PC.NURSE ---
Pt states he need a rabies shot, I asked where he was bit and he stated He bit the dog , Dr Salomon going to bedside to educate.
--- NOTE | 2024-11-19 21:25 | PC.NURSE ---
Pt refusing Rabies vaccine after asking for one, pt states hes leaving against medical advice and going to another hospital.
[2024-11-19 21:26] VITALS: BP 128/77; PULSE 81; RESP 18; TEMP 36.6; O2SAT 97
== END 2024-11-19 21:28 | disposition left against medical advice (07) ==
PROVIDERS: Emergency Provider Emergency Medicine
DX: S22.31XA Fracture of one rib, right side, initial encounter for closed fracture (principal); S32.009A Unspecified fracture of unspecified lumbar vertebra, initial encounter for closed fracture; W54.8XXA Other contact with dog, initial encounter
CPT/HCPCS: 90471; 99283; J1885